=== PATIENT | male | born 2000 ===

== ENCOUNTER 2019-03-23 03:32 | Emergency (ER) | payer SELFPAY ==
[2019-03-23] MEDS ORDERED: TRAMADOL HYDROCHLORIDE 50 MG TAB PO ONE (04:09)
[2019-03-23] MEDS ORDERED: TRAMADOL HYDROCHLORIDE 50 MG TAB ONE (04:11)
[2019-03-23 04:27] VITALS: RESP 20; TEMP 97.9; O2SAT 99
[2019-03-23 04:32] VITALS: BP 129/76; PULSE 98
== END 2019-03-23 04:20 | disposition home or self-care (01) | DRG 556 ==
LOC: ED 03:32
DX: M79.641 Pain in right hand (principal)
CPT/HCPCS: 73130; 99283; A9270-GY